=== PATIENT | female | born 1950 | race Caucasian/White ===

== ENCOUNTER 2020-03-20 08:46 | Outpatient (CLI) | payer MEDICARE ==
[~2020-03-20 08:46] MED LIST: ASPI81TA50 PO; THYR97.5 PO
== END 2020-03-20 23:59 | disposition home or self-care (01) ==
LOC: STAR 08:46
PROVIDERS: ATTEND Internal Medicine Cardiovascular Disease
DX: I49.9 Cardiac arrhythmia, unspecified (principal); R00.2 Palpitations; R00.0 Tachycardia, unspecified
CPT/HCPCS: 93005